=== PATIENT | male | born 1995 | race Caucasian/White ===

== ENCOUNTER 2017-07-14 16:19 | Emergency (ER) | payer OTHER ==
--- NOTE | 2017-07-14 16:49 | RAD ---
INDICATION: Intracranial injury COMPARISON: None TECHNIQUE: Noncontrast axial source images were acquired from the skull base to the vertex. FINDINGS: Ventricles/sulci: The ventricles and cisterns are normal in size and configuration for age. Brain parenchyma: There is no focal parenchymal finding, evidence of intracranial mass, or intracranial mass effect. Intracranial hemorrhage:None. Extra-axial spaces: There are no abnormal extra axial fluid collections or evidence of extra-axial mass. Calvarium: There is no calvarial fracture or other calvarial abnormality. Scalp: There is no evidence of scalp or extracalvarial soft tissue abnormality. Paranasal sinuses/mastoid: There is bilateral ethmoid sinusitis The remaining paranasal sinuses and mastoid air cells are clear. Other: None. IMPRESSION: No intracranial abnormalities
[2017-07-14] MEDS ORDERED: Meclizine TAB* 12.5 MG PO ONE (17:05)
[2017-07-14] MEDS ORDERED: Ibuprofen TAB* 600 MG PO ONE (17:05)
--- NOTE | 2017-07-14 17:07 | ED ---
Head Injury - HPI Summary HPI Summary: 21F presents head injury today. He had head injury last week that he lost consciousness with. He lost conscious today. He has amnesia after the event. He remembers before the event. He had slowed speech. He admits nausea but denies any vomiting. He has no history of migraines. He has not followed up with anyone about this. He was lost conscious for about a minute. He denies any neck pain. He admits to dizziness now. He admits to photophobia and difficulties concentrating. His coworkers say he is improving from when the head injury first occurred. He hasn't taken anything for his pain. 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 - History Of Current Complaint Chief Complaint: EDHeadInjury Stated Complaint: HEAD INJURY Time Seen by Provider: 07/14/17 16:30 Pain Intensity: 6 - Allergies/Home Medications Allergies/Adverse Reactions: Allergies Allergy/AdvReac Type Severity Reaction Status Date / Time No Known Allergies Allergy Verified 04/19/12 10:34 PMH/Surg Hx/FS Hx/Imm Hx Endocrine/Hematology History: Denies: Hx Diabetes, Hx Thyroid Disease Cardiovascular History: Denies: Hx Hypertension Respiratory History: Denies: Hx Asthma, Hx Chronic Obstructive Pulmonary Disease (COPD) GI History: Denies: Hx Ulcer Musculoskeletal History: Denies: Hx Rheumatoid Arthritis, Hx Osteoporosis - Surgical History Surgery Procedure, Year, and Place: Appendectomy - Immunization History Immunizations Up to Date: Yes Infectious Disease History: No Infectious Disease History: Denies: Hx Hepatitis, Hx Human Immunodeficiency Virus (HIV), Traveled Outside the in Last 30 Days - Family History Known Family History: Positive: Other - no fam history of migraines - Social History Alcohol Use: None Substance Use Type: Reports: None Smoking Status (MU): Never Smoked Tobacco Review of Systems Negative: Fever Negative: Chest Pain Negative: Shortness Of Breath Positive: Nausea. Negative: Vomiting Positive: Headache All Other Systems Reviewed And Are Negative: Yes Physical Exam Triage Information Reviewed: Yes Vital Signs On Initial Exam: Initial Vitals Temp Pulse Resp BP Pulse Ox 99.2 F 75 17 143/77 96 07/14/17 16:25 07/14/17 16:25 07/14/17 16:25 07/14/17 16:25 07/14/17 16:25 Vital Signs Reviewed: Yes Appearance: Positive: Well-Appearing Skin: Positive: Warm, Dry Head/Face: Positive: Normal Head/Face Inspection, Other - no step off, racoon eyes, richmond sign Eyes: Positive: Normal, EOMI, SERGE, Conjunctiva Clear ENT: Positive: Normal ENT inspection, Pharynx normal, TMs normal Respiratory/Lung Sounds: Positive: Clear to Auscultation, Breath Sounds Present Cardiovascular: Positive: Normal, RRR Abdomen Description: Positive: Nontender, Soft Bowel Sounds: Positive: Present Musculoskeletal: Positive: Normal Neurological: Positive: Sensory/Motor Intact, Alert, Oriented to Person Place, Time, CN Intact II-III, Finger to Nose - [place] Coma Scale Best Eye Response: 4 - Spontaneous Best Motor Response: 6 - Obeys Commands Best Verbal Response: 5 - Oriented Coma Scale Total: 15 Diagnostics - Vital Signs Vital Signs Temp Pulse Resp BP Pulse Ox 07/14/17 16:54 99 F 63 15 140/84 96 07/14/17 16:25 99.2 F 75 17 143/77 96 - Laboratory Lab Statement: Any lab studies that have been ordered have been reviewed, and results considered in the medical decision making process. - CT brain CT Interpretation: No Acute Changes CT Interpretation Completed By: Radiologist Head Injury Course/Dx Course Of Treatment: 21F presents head injury today. He had head injury last week that he lost consciousness with. He lost conscious today. He has amnesia after the event. He remembers before the event. He had slowed speech. He admits nausea but denies any vomiting. He has no history of migraines. He has not followed up with anyone about this. He was lost conscious for about a minute. He denies any neck pain. He admits to dizziness now. He admits to photophobia and difficulties concentrating. His coworkers say he is improving from when the head injury first occurred. He hasn't taken anything for his pain. 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 On exam normal neuro exam just slow. Head CT due to loss consciousness. CT normal. We will have follow-up with neurology due to repeat concussions. observed for 2 hours and patient improved in ED. Patient understands and agrees with plan. - Diagnoses Differential Diagnosis/HQI/PQRI: Concussion With LOC, Contusion, Intracranial Bleed Provider Diagnoses: Concussion Discharge - Discharge Plan Condition: Good Disposition: HOME Prescriptions: Ondansetron ODT TAB* [Zofran 4 MG Odt TAB*] 4 mg PO Q6H PRN #20 tab.odt PRN Reason: Nausea Patient Education Materials: Concussion (ED) Forms: *Work Release Referrals: [facility] [Outside] Carson Curiel MD [Medical Doctor] - Additional Instructions: Rest for next two days Place ice on area as needed Take Tylenol or ibuprofen for headache every 6 hours Modify activities as tolerated Take zofran every 6 hours for nausea Follow up with neurology Establish care with primary Do not participate in wrestling Return to ED if develop vomiting, severe headache, change in behavior, or any new or worsening symptoms
[2017-07-14 17:39] VITALS: BP 139/74
== END 2017-07-14 17:38 | disposition home or self-care (01) ==
LOC: ED 16:19
DX: S06.0X9A Concussion with loss of consciousness of unspecified duration, initial encounter (principal); X58.XXXA Exposure to other specified factors, initial encounter; Y92.9 Unspecified place or not applicable
CPT/HCPCS: 70450; 99282; A9270-GY